=== PATIENT | male | born 1970 | race African-American/Black ===

== ENCOUNTER 2018-09-23 07:17 | Observation (INO) | payer OTHER, SELFPAY ==
[2018-09-23 07:29] LABS: #Basophils 0.1 thou/uL (0.0-0.2); #Eosinphils 0.1 thou/uL (0.0-0.7); #Lymphocytes 1.8 thou/uL (1.20-3.40); #Monocytes 0.4 thou/uL (0.11-0.59); #Neutrophils 5.4 thou/uL (1.40-6.50); %Eosinophils 1.1 % (0.0-10.0); %Lymphocytes 23.1 % (21.0-51.0); %Monocytes 4.6 % (0.0-10.0); %Neutrophils 70.3 % (42.0-75.0); Hemoglobin 13.5 g/dL (14.0-18.0); Mean Corpuscular HGB CONC 33.4 g/dL (32.0-36.0); Mean Corpuscular Hemoglobin 29.9 pg (27.0-31.0); Mean Corpuscular Volume 89.4 fL (78.0-98.0); Mean Platelet Volume 8.2 fL (7.4-10.4); Platelet Count 193 thou/uL (130-400); RBC Distribution Width 12.4 % (11.5-14.5); Red Blood Cell (RBC) Count 4.51 mill/uL (4.70-6.10); White Blood Cell (WBC) Count 7.7 thou/uL (4.8-10.8)
[2018-09-23] MEDS ORDERED: Adacel (T-DAP) 0.5 ML SYRINGE ONE (07:33)
[2018-09-23 07:43] LABS: ALT (SGPT) 35 U/L (8-55); AST (SGOT) 35 U/L (5-34); Albumin 4.3 g/dL (3.5-5.0); Alkaline Phosphatase 51 U/L (40-150); Anion Gap 14 mmol/L (10-20); BUN (Urea Nitrogen) 15 mg/dL (8.9-20.6); Bilirubin, Total 0.3 mg/dL (0.2-1.2); Calc. Creatinine Clearance 0 mL/min (70-130); Calcium 8.8 mg/dL (7.8-10.44); Carbon Dioxide 23 mmol/L (22-29); Chloride 107 mmol/L (98-107); Estimated GFR-MDRD Greater than 90; Globulin 2.1 g/dL (2.4-3.5); Glucose 113 mg/dL (70-105); Lipase 5 U/L (8-78); Protein, Total 6.4 g/dL (6.0-8.3); Sodium 140 mmol/L (136-145)
[2018-09-23 07:47] LABS: INR-International Normal Ratio 1.1; PTT 25.3 SEC (22.9-36.1); Prothrombin Time 14.2 SEC (12.0-14.7)
--- NOTE | 2018-09-23 07:54 | CT ---
Head CT without contrast 09/23/2018: COMPARISON: None HISTORY: Injury, trauma, pain TECHNIQUE: Axial CT imaging at 5 mm intervals from vertex through skull base without contrast FINDINGS: Punctate calcific density noted within the scalp anterior to the frontal sinus on the left measuring 5 mm, suggesting a foreign body. Laceration seen superior to left orbit anteriorly. The imaged paranasal sinuses/mastoid air cells appear well aerated. No displaced calvarial fracture. Focal scalp swelling seen anteriorly near the vertex on the right with probable associated punctate soft tissue foreign body. No intracranial hemorrhage, midline shift, mass effect, or ventricular enlargement. IMPRESSION: Soft tissue injuries as detailed above. No intracranial hemorrhage or displaced calvarial fracture. Results called to Dr. Rivers at 7:50 AM 09/23/2018.
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
[2018-09-23] MEDS ORDERED: Acetaminophen 500 MG TAB ONE (08:04)
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
[2018-09-23] MEDS ORDERED: Ondansetron PF 4 MG/2 ML Vial ONE (11:35)
[2018-09-23] MEDS ORDERED: Morphine 2 MG/ML SYRINGE ONE (11:35)
[2018-09-23] MEDS ORDERED: Dextrose 5% in Water 1,000 ML IV PRN (12:42)
[2018-09-23] MEDS ORDERED: Dextrose 50% Abboject 50 ML SYRINGE SLOW IVP PRN (12:42)
[2018-09-23] MEDS ORDERED: Ondansetron PF 4 MG/2 ML Vial IVP PRN (12:42)
[2018-09-23] MEDS ORDERED: hydrALAZINE 20 MG/ML VIAL SLOW IVP PRN (12:42)
[2018-09-23] MEDS ORDERED: Ondansetron ODT 4 MG TAB PO PRN (12:42)
[2018-09-23] MEDS ORDERED: traMADol HCl 50 MG TAB PO PRN ×2 (12:42)
[2018-09-23] MEDS ORDERED: Sodium Chloride 0.9% 1,000 ML IV SCH (12:42)
[2018-09-23] MEDS ORDERED: Promethazine HCl 25 MG/ML VIAL IM PRN ×2 (12:42)
[2018-09-23] MEDS: Cyclobenzaprine 10 MG TAB PO PRN ×2 (12:50→21:02)
[2018-09-23 12:55] VITALS: BMI 20.8
[2018-09-23] MEDS: Ibuprofen 800 MG TAB PO SCH ×2 (13:22→20:59)
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
--- NOTE | 2018-09-23 15:58 | PDOC.EVN ---
Event Note - Event Note Event Note: Patient seen and examined. Agree with Resident H&P. Pain control, incentive spirometry.
[2018-09-23] MEDS: Acetaminophen 500 MG TAB PO SCH ×2 (17:14→23:49)
[2018-09-23] MEDS: Gabapentin 300 MG CAP PO SCH (20:59)
[2018-09-24] MEDS: Ibuprofen 800 MG TAB PO SCH (06:19)
[2018-09-24] MEDS: Acetaminophen 500 MG TAB PO SCH ×2 (06:19→11:59)
[2018-09-24 08:24] VITALS: TEMP 98.1
--- NOTE | 2018-09-24 08:26 | RAD ---
CHEST 1 VIEW: HISTORY: Followup pulmonary contusion and rib fractures. COMPARISON: Chest CT scan 09/22/2018. FINDINGS: Heart size is normal. No pneumothorax. There are some minimal persistent parenchymal changes in the upper lung zones but showing improvement from prior study. IMPRESSION: No pneumothorax or significant pleural effusion. Improving parenchymal changes in the upper lung zon es. POS: TPC
[2018-09-24] MEDS: Gabapentin 300 MG CAP PO SCH (09:27)
[2018-09-24 12:00] VITALS: BP 114/82
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
--- NOTE | 2018-09-28 10:30 | EKG ---
Test Reason : Blood Pressure : / mmHG Vent. Rate : 087 BPM Atrial Rate : 087 BPM P-R Int : 150 ms QRS Dur : 080 ms QT Int : 394 ms P-R-T Axes : 068 062 054 degrees QTc Int : 474 ms Normal sinus rhythm Normal ECG Confirmed by NEY CHRISTOPHER ([id number]), graphics editor STAN SANTAMARIA ([id number]) on 09/28/2018 10:29:54 AM Referred By: Confirmed By:NEY CHRISTOPHER
== END 2018-09-24 12:48 | disposition home or self-care (01) ==
LOC: ERS 07:17 → INTOOBSV 10:35 → SURG A 10:35
PROVIDERS: ADMIT Surgery; ATTEND Surgery
DX: S27.329A Contusion of lung, unspecified, initial encounter (principal); S22.49XA Multiple fractures of ribs, unspecified side, initial encounter for closed fracture; V69.9XXA Occupant (driver) (passenger) of heavy transport vehicle injured in unspecified traffic accident, initial encounter
CPT/HCPCS: 12001; 12015; 70450; 71045; 71260; 72125; 74177; 80053; 83690; 84484; 85025; 85610; 85730; 90715; 93005; 94640; 96361; 96374; 96375; G0378; G0390; J2270; J2405; J7620

== ENCOUNTER 2018-10-01 14:29 | Outpatient (CLI) | payer OTHER ==
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
== END 2018-10-01 14:30 | disposition home or self-care (01) ==
LOC: RAD 14:29
PROVIDERS: ATTEND Physician Assistant
DX: S22.41XD Multiple fractures of ribs, right side, subsequent encounter for fracture with routine healing (principal)
CPT/HCPCS: 71046